=== PATIENT | female | born 1965 | race Caucasian/White ===

== ENCOUNTER 2021-03-13 16:29 | Emergency (ER) | payer BC ==
[2021-03-13 16:47] VITALS: BP 125/68; BMI 24.2
[2021-03-13 17:09] LABS: MCHC 33.3 g/dl (32.0-36.0)
[2021-03-13 17:13] LABS: EOS % 2.6 % (0-4.5); HEMATOCRIT 37.1 % (32.4-45.2); HEMOGLOBIN 12.4 GM/dl (10.7-15.3); LYMPH % 39.7 % (8-40); MCH 28.8 pg (25.7-33.7); MEAN CELL VOLUME 86.5 fl (80-96); MEAN PLT VOLUME 7.5 fl (7.5-11.1); NEUT % 46.7 % (42.8-82.8); PLATELET COUNT 253 10^3/uL (134-434); RBC 4.29 M/mm3 (3.60-5.2); RDW 11.4 % (11.6-15.6); WHITE BLOOD COUNT 5.9 K/mm3 (4.0-10.8)
[2021-03-13 17:27] LABS: ALBUMIN 3.8 g/dl (3.4-5.0); ALK PHOS 58 U/L (45-117); ANION GAP 7 MMOL/L (8-16); BILIRUBIN,TOTAL 0.5 mg/dl (0.2-1); CALCIUM 8.7 mg/dl (8.5-10); CHLORIDE 104 mmol/L (98-107); CO2 27 mmol/L (21-32); CREATININE 0.7 mg/dl (0.55-1.3); GLUCOSE,RANDOM 98 mg/dl (74-106); SGOT/AST 17 U/L (15-37); SGPT/ALT 15 U/L (13-61); SODIUM 138 mmol/L (136-145); TOT PROT 7.2 g/dl (6.4-8.2)
[2021-03-13 19:02] VITALS: PULSE 83; TEMP 98
== END 2021-03-13 20:17 | disposition home or self-care (01) ==
LOC: FER 16:29
DX: S29.011A Strain of muscle and tendon of front wall of thorax, initial encounter (principal)
CPT/HCPCS: 36415; 71046-TC-FY; 71260-TC; 80053; 82550; 84484; 85025; 93005; 99284-25; Q9967